=== PATIENT | male | born 1970 | race Caucasian/White ===

== ENCOUNTER → 2017-08-03 | Day surgery (SDC) | payer OTHER ==
[~2017-08-03] VITALS: Ht 172.7 cm; Wt 90.7 kg
[~2017-08-03] MED LIST: ATENOLOL25 M1 PO; COZAAR100 M1 PO; DAILY MULTIPLE1 EACH PO; SIMVASTATIN20 M2 PO
--- NOTE | 2017-08-03 08:54 | Operative Report ---
Operative/Inv Procedure Report Surgery Date: 08/03/17 Name of Procedure: Exploratory laparotomy Pre-Operative Diagnosis: Ventral hernia Post-Operative Diagnosis: Liver cyst Estimated Blood Loss: scant Surgeon/Wire Sawyer: Jonathan BOWIE,Evangelist Bass/Alessandro BLANTON Anesthesia: laryngeal mask airway Operative Indication: 47-year-old male with new onset of epigastric subcutaneous appearing mass. Differential includes lipoma versus incarcerated hernia. He presents for repair. Operative/Procedure Note Note: After consent patient brought to the operative laid supine. Gen. anesthesia was obtained and his abdomen was prepped and draped. A midline incision was made longitudinally after local anesthesia was instilled. We dissected the subcutaneous tissues tissues. Although there was a mass palpable, there was no lipoma in the subcutaneous tissues tissues. It was clear that the mass was deep to the fascia. Therefore midline incision through the linea alba was inducted with cautery. Perineum was entered sharply. We encountered a very large cystic mass that appeared to emanate from polycystic liver disease. The liver was explored and there was diffuse cystic changes Microlet macroscopic in nature throughout both lobes the liver. At this point I elected to conclude the operation. The fascia was closed with 0 Maxon suture. Skin closed in layers of Vicryl sutures. Steri-Strips and sterile dressing applied. Sponge and needle counts are correct Findings: Severe polycystic liver disease. Recommend hepatology consultation. Avoid Tylenol products, and minimize or discontinue alcohol use. CC: Josephine BOWIE,Ty Rush
== END ==
LOC: STS 02:30
DX: K76.89 Other specified diseases of liver (principal); Q61.3 Polycystic kidney, unspecified; I10 Essential (primary) hypertension
CPT/HCPCS: 36415; J2250